=== PATIENT | male | born 2000 | race Caucasian/White ===

== ENCOUNTER 2020-06-09 14:40 | Outpatient (REF) | payer BC, SELFPAY ==
[2020-06-13 22:51] LABS: Patient Race White; SARS-CoV-2 RNA Undetected (Undetected); SARS-CoV-2 Specimen Source Nasal
== END 2020-06-09 15:00 ==
LOC: NCHCN 14:40
PROVIDERS: PCP Family Medicine; Visit Provider Nurse Practitioner Family
DX: Z20.828 Contact with and (suspected) exposure to other viral communicable diseases (principal)
CPT/HCPCS: U0003

== ENCOUNTER 2021-07-20 11:02 | Outpatient (CLI) | payer BC, SELFPAY ==
[2021-07-20 12:47] LABS: Source Nasal/Nares
[2021-07-20 13:57] LABS: COVID-19 PCR Negative (Negative)
== END 2021-07-20 11:03 | disposition home or self-care (01) ==
LOC: LBO 11:02
PROVIDERS: PCP Family Medicine; Visit Provider Student in an Organized Health Care Education/Training Program
DX: Z20.822 Contact with and (suspected) exposure to COVID-19 (principal); Z01.818 Encounter for other preprocedural examination
CPT/HCPCS: 87635

== ENCOUNTER 2021-07-21 09:59 | Day surgery (SDC) | payer BC, SELFPAY ==
[2021-07-21] VITALS (8 sets, daily range): BP systolic 95–141; BP diastolic 52–81; PULSE 51–71; RESP 9–18; TEMP 36.2–37.5; O2SAT 96–100; BMI 26.6
--- NOTE | 2021-07-21 09:45 | PDOC.DSDIS_ITS ---
Discharge Plan Disposition Patient Disposition: HOME Condition: Good Discharge Details Reason For Visit: LLF Flexor Tendon Laceration Attending Provider: Guy Jaimes Primary Care Provider: Alvarez Ashley Home Meds and New Rx's Prescriptions: New acetaminophen 500 mg tablet 500 mg PO Q6H PRN PRN (Reason: pain) Qty: 60 RF: 3 hydrocodone-acetaminophen 5-325 mg tablet 1 tab PO Q6H PRN (Reason: pain) Qty: 6 RF: 0 ibuprofen 600 mg tablet 600 mg PO TID PRN (Reason: pain) Qty: 90 RF: 3 Discharge Instructions Additional Instructions: Flexor Tendon Discharge Instructions Activity: You may use your other fingers for light activity in the splint. You will come out of the splint and start Hand Therapy Dressings: You should keep the initial surgical dressing in place until follow- up. Keep it clean and dry. Medications: - You should take Tylenol and Ibuprofen around the clock as prescribed or per heavy forger helper's recommendations. - You have Hydrocodone prescribed for breakthrough pain control. Take only as needed and limit use as much as possible. This may cause constipation. Follow-up: 7 days for wound check and suture removal. You will also start hand therapy for a removable splint and rehab direction. Referrals: Guy Jaimes MD [ [facility] STAFF PHYSICIAN] - Equipment/Supplies: Splint Activity:: Elevate Remove Dressings/Wound Care:: Do Not Remove Shower/Bathe:: Cover Diet:: As Tolerated Discharge Orders Discharge Orders: Discharge Order (Routine); Ordered 07/21/21 Ordered By: Guy Jaimes DS: Diagnosis Discharge Diagnosis (1) Flexor tendon laceration, hand, open wound: Status: Acute
[2021-07-21] MEDS: Lactated Ringers 1,000 ML 80 ML IV (10:36)
--- NOTE | 2021-07-21 10:40 | W.ANESPRE ---
General Info Date of Service Date Performed: 07/21/21 Height: 5 ft 10 in Weight: 84.1 kg Body Mass Index (BMI): 26.6 Surgical Procedure: Operation Date: 07/21/21 13:10 Proposed Procedures Side Surgeon p Flexor Tendon Repair,LLF Guy Jaimes MD Meds Allergies and Home Medications Allergies Allergy/AdvReac Type Severity Reaction Status Date / Time No Known Allergies Allergy Unverified 07/21/21 10:41 Home Medication Medication Instructions Recorded Unknown [No Known Home Meds] 12/13/14 Current Visit Medications: Current Medications Generic Name Dose Route Start Last Admin Trade Name Freq PRN Reason Stop Dose Admin Acetaminophen 650 mg 07/21/21 09:44 Acetaminophen 325 Mg Tab PO Q4H PRN PRN Hydrocodone Bitart/Acetaminophen 0 tab 07/21/21 09:44 Hydrocodone 5/Acetaminophen 325 Tab PO Q3H PRN PRN Pain Ringer's Solution 1,000 mls @ 80 mls/hr 07/21/21 06:00 07/21/21 10:36 IV 08/19/21 23:59 80 mls/hr INFUSION ROMAN Administration Cefazolin Sodium/Dextrose 2 gm in 50 mls @ 100 mls/hr 07/21/21 06:00 Ancef Duplex IVPB 07/21/21 16:00 PREOP ROMAN IV Miscellaneous Supplies 1 each 07/21/21 06:00 Iv Access IV 08/19/21 23:59 DIRECTED ROMAN Sodium Chloride 0 ml 07/21/21 06:00 Normal Saline Flush 10 Ml Syr IV 08/19/21 23:59 PRN PRN Sodium Chloride 0 ml 07/21/21 06:00 Normal Saline 10 Ml Vial IJ 08/19/21 23:59 DIRECTED PRN Sterile Water 0 ml 07/21/21 06:00 Water,Injection,Sterile 10 Ml Vial IJ 08/19/21 23:59 DIRECTED PRN PFSH Active Problems Active Problems: Problem Status Onset Code Flexor tendon laceration, hand, open wound S66.829A, S61.409A Tobacco Smoking/Tobacco Use Status: Never Alcohol Alcohol Intake: current Alcohol intake frequency: holidays/special occasions only Substance Use Substance use: Never Substance use type: does not use Vital Signs and Lab Results Vital Signs Most Recent Vital Signs in EMR: Most Recent Vital Signs Temp Pulse Resp BP Pulse Ox 37.5 C 71 18 141/72 H 99 07/21/21 10:13 07/21/21 10:13 07/21/21 10:13 07/21/21 10:13 07/21/21 10:13 Lab Results Blood Type / Crossmatch: No Data to Display Complete Blood Count: No Data to Display Complete Metabolic Panel: No Data to Display Liver Function Panel: No Data to Display Coagulation Panel: No Data to Display Cardiac Panel: No Data to Display Arterial Blood Gas: No Data to Display Venous Blood Gas: No Data to Display Pancreas Panel: No Data to Display Thyroid Panel: No Data to Display Infectious Disease: Coronavirus (COVID-19)(PCR) Negative (Negative) 07/20/21 11:27 07/20/21 Coronavirus 2019 Source Nasal/Nares 07/20/21 11:27 07/20/21 Blood Cultures: No Data to Display Toxicology Panel: No Data to Display Anesthesia Assessment and Plan Anesthesia History Personal History: No History of General Anesthesia Family History: No Family History of Anesthesia Complications Exercise Tolerance Exercise Tolerance: Metabolic Equivalents>4 Pertinent Negatives Pertinent Negatives: No Symptoms of GERD (Rare symptoms with spicy foods only, never on empty stomach), No Major Cardiovascular Symptoms or Complaints, No Major Pulmonary Symptoms or Complaints and No History of CVA/TIA Cardiac & Pulmonary Exam Cardiac Exam: Normal S1/S2 Heart Sounds Pulmonary Exam: Clear Bilateral Breath Sounds Implantable Cardiac Device Does patient have a Pacemaker or an ICD?: No Airway Exam Known Difficult Airway: No Mallampati Class: 1 Mouth Opening: Normal (> 3cm) Thyromental Distance: Greater than 3 cm Neck Range of Motion: Full ROM Neck Circumference: Normal Teeth Condition: Normal Dentition ASA Classification ASA Score: ASA 1 Emergency Case?: No NPO Status NPO Status: NPO Clears >2 hours, Solids >8 hours Anesthesia Plan Resuscitation Status: Full Code Anesthesia Technique: General Anesthesia Airway Planned: LMA Monitors Used: Standard Monitors
--- NOTE | 2021-07-21 11:04 | HPE_ITS ---
Assessment and Plan Assessment and plan (1) Flexor tendon laceration, hand, open wound: Status: Acute Assessment and plan: Justin is a 20-year-old who suffered a laceration of his left little finger flexor tendons. He is unable to flex the finger and has a extended posture which would be indicative of injury of the flexor tendons. Therefore, there needs surgical intervention. I reviewed this with Justin. I discussed the technical challenges about these injuries and [place] man's land. I would perform an open exploration at the level of the laceration to find the tendons. There also may need to be a secondary incision made within the palm fo r identification of the flexor tendons. He does not seem to have any neurovascular compromise and therefore I will not perform any nerve repair. He will be in a splint afterwards and he may return to work as long as he is a splint in place. I'll need to see him back in 1 week after the surgery. I discussed the surgical details with him in detail. I reviewed the risk of the procedure to include bleeding, infection, pain, stiffness, weakness, retear, need for repeat procedures, damage to nerves and vessels. Despite these risks, he elects to proceed. Qualifiers: Encounter type: initial encounter Laterality: left Qualified Code(s): S66.822A - Laceration of other specified muscles, fascia and tendons at wrist and hand level, left hand, initial encounter; S61.402A - Unspecified open wound of left hand, initial encounter History of Present Illness History of Present Illness Chief Complaint: Left little finger flexor tendon laceration Narrative: Justin is a 20-year-old who was using a knife 2 days ago when it slipped and lacerated the palmar aspect of his left little finger at the PIP flexion crease. He lost the ability to flex the finger and therefore he went to urgent care. At urgent care there was concern for flexor tendon injury and I was called. Given the clinical presentation, this likely represented a fl exor tendon injury and I recommended urgent surgical intervention. He denies numbness or tingling distal to the laceration site. He has had no issues with the wound. He denies fevers or chills. He has no other medical issues. Review of Systems All systems reviewed & are unremarkable except as noted in HPI and below PFSH All Active Problems (Updated 07/21/21 @ 11:07 by Guy Jaimes MD) Flexor tendon laceration, hand, open wound (Acute) Social History Smoking/Tobacco Use Status: Never Smoking risk assessment performed?: Yes Alcohol Intake: current Alcohol Intake frequency: holidays/special occasions only Drug use: Never Substance use type: does not use Do you feel safe at home: Yes Additional Social history: patient is single Meds Allergies and Home Medications Allergies Allergy/AdvReac Type Severity Reaction Status Date / Time No Known Allergies Allergy Unverified 07/21/21 10:41 Home Medications Medication Instructions Recorded Confirmed Type Unknown [No Known Home Meds] 12/13/14 07/20/21 History Exam Narrative Exam Narrative: Justin is in no acute distress. Alert and oriented x3. Chest is clear to auscultation bilaterally. Heart rate and rhythm are regular. Evaluation of the left hand shows a 5 mm laceration directly at the level of the PIP flexion crease of the left little finger. It is centrally located. There is no surrounding signs of infection. There is no drainage. It is held in extended posture without the normal cascade. There is no tenodesis effect to the left little finger. There is no active flexion of the PIP or DIP joint of the left little finger. He endorses full sensation distal to the laceration site. The fingertip is warm and well-perfused with capillary refill less than 2 seconds. Results Last Vital Signs Temp 37.5 C 07/21/21 10:13 Pulse 71 07/21/21 10:13 Resp 18 07/21/21 10:13 BP 141/72 H 07/21/21 10:13 Pulse Ox 99 07/21/21 10:13
[2021-07-21] MEDS: ceFAZolin 2 GM/50 ML BAG IVPB (11:25)
[2021-07-21] MEDS: Sodium Bicarbonate 50 MEQ/50 ML VIAL (11:47)
--- NOTE | 2021-07-21 14:21 | W.ANESPOSTOP ---
Postoperative Evaluation Date, Time and Location Date Performed: 07/21/21 Time Performed: 14:21 Patient Location: Day Surgery Unit Vital Signs Most Recent Imported Vital Signs: Most Recent Vital Signs Temp Pulse Resp BP Pulse Ox 36.2 C L 64 17 126/60 100 07/21/21 13:48 07/21/21 13:48 07/21/21 13:48 07/21/21 13:48 07/21/21 13:48 Pain Score Most Recent Pain Score: Most Recent Pain Score Pain Level 0 07/21/21 10:13 Assessment Mental Status: Awake (Alert & Oriented to Patient Baseline) Airway and Respiratory Function: Patent airway with normal (patient baseline) respiratory exam Cardiovascular Function: Hemodynamically Stable Hydration Status: Adequately Hydrated Nausea & Vomiting: No Nausea or Vomiting Pain: Pt. Denies Any Pain Peripheral Nerve Block: Patient did not receive a nerve block
--- NOTE | 2021-07-21 20:32 | ROE_ITS ---
Date of service: 07/21/21 Time of Service: 14:32 Operative Note Operative Note DATE OF PROCEDURE: 07/21/21 PRE-OP DIAGNOSIS: Laceration of left little finger flexor tendon PROCEDURE: Operative repair of left little finger FDP laceration SURGEON: Guy Jaimes ANESTHESIA TYPE: General LMA/ETT Refer to Anesthesia Record ESTIMATED BLOOD LOSS: 5 PATHOLOGY: none sent TOURNIQUET TIME: 0 COMPLICATIONS: None Patient was transported to: PACU Patient's condition: stable Indications: Justin is a 21-year-old who was using a knife when it slipped and penetrated the palmar surface of his left little finger at the level of the PIP flexion crease. He had immediate pain and was unable to flex the finger. He was seen at [facility] with the concerning diagnosis of flexor tendon laceration. Given this diagnosis I recommended urgent surgical intervention. I discussed the case with him in detail. Given the lack of flexion of the finger and the posturing, it was evident that he had tendon injury which would benefit from op repair. I reviewed the risk of the procedure to include bleeding, infection, pain, stiffness, damage to nerves and vessels, retear, weakness. Despite these risk, he elects to proceed. Findings: There is a clean laceration of the FDP tendon at the level of the mid middle phalanx with retraction of the proximal and into the carpal tunnel. There is some involvement of the A4 barbara which had to be released and then reconstructed. FDS was intact onto the middle phalanx although the tendon at the level of the A1 barbara looked quite diminutive. Procedure Description: Justin was greeted in the preoperative holding area. His identity was confirmed the correct side was identified and marked. The consent was reviewed the patient and signed. He was taken back to the operating room placed in the supine position with all bony prominences well-padded. The left hand space on a hand table. A general anesthetic was administered. The hand and forearm was prepped ChloraPrep and draped in a standard fashion. Prophylactic antibiotics in the form of cefazolin were administered. A timeout was for safe surgery. The proposed surgical site was made as a Barrera incision centered over his small, 5 mm, laceration at the PIP flexion crease of the little finger. A digital block was performed by injecting an area at the level of the A1 barbara, MCP joint, the left little finger with 1% lidocaine with epinephrine. I also then injected the soft tissues at the level of the PIP joint and the proposed surgical site. No tourniquet was used. Sharp dissection was then carried down through the skin and a Barrera type inci connor across the previous laceration and along the palmar aspect of the proximal middle phalanx. Dissection was carried down deeply to expose the flexor tendon sheath which was obviously void of the FDP tendon. Interestingly, the laceration seem to penetrate in a proximal to distal direction with some injury to the A4 barbara. The 2 slips of the FDS tendon were seen attaching to the base of middle phalanx. The each were manipulated and showed no signs of associated tendon tearing. The distal aspect of the tendon was quite difficult to find in the A5 barbara had to be partially release in order to discover the distal aspect. The cut of the tendon was quite clean and was identified the end was briefly debrided. I was unable to find the tendon within the flexor tendon sheath in the finger and so therefore proceeded down to the level of the A1 barbara. An incision was made over this area and carried down deeply. The flexor tendon sheath was identified and the A1 barbara was released. The FDP tendon was not at this level. There was a small and slip which when manipulated pulled the middle phalanx, flexing the PIP joint. It was much smaller than I would expect to see for the FDS tendon and only saw one slip at this location. However, there was notable synovitis seen around it. Synovitis was released which allowed for more room to investigate into the sheath of the flexor ten dons. Further dissection proximally was performed and with elevation was able to pull the tendon from within the carpal tunnel where it rested at the exit of the carpal tunnel. It was balled up at this level and pulled out through the A1 barbara incision. I then used an Angiocath catheter to pass through the flexor tendon from the point of injury down into the A1 barbara area. A suture was passed through the end of the tendon and the suture and then thus the tendon, was shuttled through the flexor tendon barbara sheath. It is passed underneath the FDS tendon and through the slips of the FDS tendon at the level of the proximal phalanx. Due to the size of the end of the flexor tendon and the previous injury the A4 barbara is unable to thread this through the A4 barbara given it was at the location of the tear. Therefore I released the remnant of the A4 barbara and was able to approximate the ends of the flexor tendon. Using a 2-0 FiberWire suture I then performed a 4 core repair using a cruciate style fixation technique. This was done and the tendon edges were approximated without significant difficulty. The suture was tied excellent approximation of the tendon. The finger second through range of motion there is no gapping at the site. I then used a 5-0 nylon suture to perform a running epitendinous suture to contour the edges and decreased bulk and also reinforced the repair site. The A3 barbara was largely left intact and the A5 barbara was only partially released. However, the A4 barbara was fully released along with the associated cruciate barbara in this area. The bulk of the tendon prevented me from directly repairing the A4 barbara. Therefore, I used some periosteum and elevated off this area to create a thinner but slightly looser A4 barbara at the level of the middle portion of the middle phalanx. This was secured with some 4-0 nylon. I then took the finger through some range of motion. Had a normal to affect. It did not seem to bind within the A4 barbara which was reconstructed and did slide. The wounds were thoroughly irrigated. There is no significant bleeding. I closed the wounds using a 4-0 nylon. He was then placed into a ulnar gutter splint with the finger in gentle resting flexion. He will stay in the splint until follow-up in 1 week. I do the follow-up he may be removed from this and placed into a dorsal blocking splint. I would like to have him see hand therapy so they may make a custom splint for this finger to start a modified Rocioert/Hunter protocol flexor tendon reconstruction.
== END 2021-07-21 14:42 | disposition home or self-care (01) ==
PROVIDERS: PCP Family Medicine; Visit Provider Student in an Organized Health Care Education/Training Program
PROC: (CPT 26356; principal; 2021-07-21 13:00)
DX: S66.127A Laceration of flexor muscle, fascia and tendon of left little finger at wrist and hand level, initial encounter (principal); S61.217A Laceration without foreign body of left little finger without damage to nail, initial encounter; W26.0XXA Contact with knife, initial encounter
CPT/HCPCS: 26356; J0690; J1885; J2250; J2405; J2704

== ENCOUNTER → 2021-08-25 00:53 | Outpatient (CLI) | payer BC, SELFPAY ==
--- NOTE | 2021-08-25 07:30 | DI.MRI_ITS ---
Exam(s) MR UPPER EXTREMITY LT WO EXAM: MR UPPER EXTREMITY LT WO CLINICAL HISTORY: s/p tendon repair, pain, flexor tendon laceration hand, open wound,S66.831A TECHNIQUE: Multiplanar multisequence MRI was performed. [id number] IS MOSTLY OVER THE 5TH FINGER COMPARISON: No exams were available for comparison FINDINGS: MARROW:No evidence of fracture or bone contusions. There are no significant osseous lesions. No maria victoria dence of osteomyelitis. ARTICULATIONS: Mild degenerative changes no large joint effusion. No osseous erosions. MUSCLE-TENDONS: There is deficiency of the flexor digitorum profundus tendon as well flex or digitoru m superficialis tendon from the level of the head of proximal phalanx distally with re-emergence of t he thickness of the profundal tendon at the base of the distal phalanx insertion. Deficiency is over a distance of 2 cm. Attachment of the remnant profunda tendon on the volar base of the distal phalanx appears intact. The extensor tendon appears intact. There is no tenosynovitis. IMPRESSION: 1. As above. Significant deficiency of flexor tendons of the 5th finger from level of the head of th e proximal phalanx distally. 2. 3. DATA REPOSITORY:
== END ==
PROVIDERS: PCP Family Medicine; Visit Provider Student in an Organized Health Care Education/Training Program
DX: S66.127D Laceration of flexor muscle, fascia and tendon of left little finger at wrist and hand level, subsequent encounter (principal); M79.645 Pain in left finger(s); W26.0XXD Contact with knife, subsequent encounter
CPT/HCPCS: 73218